=== PATIENT | female | born 1960 | race Caucasian/White ===

== ENCOUNTER 2020-06-28 17:03 | Emergency (ER) | payer OTHER, SELFPAY ==
[2020-06-28 17:14] VITALS: RESP 16; TEMP 37.1; O2SAT 99; BMI 18.1
--- NOTE | 2020-06-28 17:39 | HMH.EDSKAF ---
ED Disposition Clinical Impression: Abscess of skin or subcutaneous tissue Qualifiers: Site of cutaneous abscess: trunk Site of cutaneous abscess of trunk: chest wall Qualified Code(s): L02.213 - Cutaneous abscess of chest wall Disposition: Home, Self-Care Condition on Discharge: Good Instructions: DI for Skin Abscess Prescriptions: Sulfamethoxazole/Trimethoprim [Bactrim DS tablet] 1 each PO BID #14 tab Prescription Printed cephALEXin [Cephalexin 500mg Tab] 500 mg PO QID #28 tab Prescription Printed Referrals: Delfino Garcia MD [Primary Care Provider] - - Critical Care Critical Care Time: No Attestation: On 06/28/20, the high probability of a clinically significant, sudden or life threatening deterioration of the following system(s) required my full and direct attention, intervention and personal management. The time I documented below is in addition to time spent performing reported procedures but includes the following listed in this critical care notation. Medical Decision Making - Medical Records Medical records reviewed: Yes: I reviewed the patient's medical records. - Dung Inquiry Pt receiving controlled substance: No Vital Signs: 06/28/20 17:14 Temperature 98.7 F Temperature Source Oral Respiratory Rate 16 02 Sat by Pulse Oximetry 99 Oxygen Delivery Method Room Air - Reevaluation(s) Time: 17:46 Reevaluation #1: On reevaluation, patient tolerated procedure well. Will be discharged on short course antibiotics. Patient needs to return to the emergency department for wound reevaluation in 48 hours. Given strict return precautions. Verbalized understanding. Medical Decision Narrative: 59-year-old female presented to the emergency department with abscess in the right upper chest. Patient has significant fluctuance. I did perform bedside ultrasound. There is a large collection of loculated material. Patient will require incision and drainage. Skin/Abscess/FB HPI - General Chief complaint: Skin/Abscess/Foreign Body Stated complaint: spot on chest possible infected Time Seen by Provider: 06/28/20 17:20 Mode of Arrival: Ambulatory Limitations: No Limitations Description of Symptoms (Recalled from ER Triage Doc. by RN): Large abcess on chest, complains of pain the last two weeks at the site, Site red and swollen, with thick yellow drainage - History of Present Illness HPI narrative: 59-year-old female presented to the emergency department with a abscess on her right chest. The patient states that she had a small cyst there for many months. She states that has been irritating her for the last few weeks. She has been squeezing it and getting pus out of it. She states that it started hurting over the last few days and got very red so she got concerned. Is located on her right middle chest. Does not involve the nipple. She is not been having any bleeding from the nipple discharge. She denies any other chest pain or shortness of breath. No fevers or chills. No abdominal pain or vomiting. - Related Data Previous Rx's Medication Instructions Recorded Sulfamethoxazole/Trimethoprim 1 each PO BID #14 tab 06/28/20 [Bactrim DS tablet] cephALEXin [Cephalexin 500mg Tab] 500 mg PO QID #28 tab 06/28/20 [facility] History - Hepatitis A Screen Drug use history?: No High risk sexual behaviors?: No History of sexually transmitted infection?: No Currently employed?: No Childcare worker?: No Do you have indoor plumbing?: Yes Do you have electricity?: Yes Attestation statement:: This patient has been screened for Hepatitis A risk factors. I have reviewed the patient's past medical history: Yes ROS Obtained: Yes All systems reviewed & no additional complaints - Constitutional Constitutional: Denies chills, Denies fever(s) - Cardiovascular Cardiovascular: Denies chest pain - Respiratory Respiratory: Denies dyspnea - Gastrointestinal Gastrointestingal: Denies: vomiting - M
[2020-06-28 18:00] VITALS: BP 142/73; PULSE 73; RESP 15; TEMP 36.6
== END 2020-06-28 18:05 | disposition home or self-care (01) ==
PROVIDERS: Emergency Provider Emergency Medicine; PCP Family Medicine
DX: L02.213 Cutaneous abscess of chest wall (principal)
CPT/HCPCS: 10060; 99281

== ENCOUNTER 2023-03-17 18:34 | Emergency (ER) | payer MEDICAID, SELFPAY ==
[2023-03-17] VITALS (9 sets, daily range): BP systolic 105–131; BP diastolic 73–87; PULSE 71–82; RESP 16–20; TEMP 35.9–36.6; O2SAT 97–100; BMI 19.3
--- NOTE | 2023-03-17 18:45 | ECG_ITS ---
APPROVED REPORT Exam: Resting ECG HR:74 bpm ECG Measurements Heart Rate 74 AXES IN 184 P 86 QRSd 94 QRS 87 QT 396 T 75 QTc 423 Conclusion SINUS RHYTHM NORMAL ECG UNCONFIRMED REPORT Electronically signed by : Delfino Moreno MD 03/18/2023 19:45:37
--- NOTE | 2023-03-17 18:59 | HMH.EDGENADL ---
Discharge Plan Disposition Patient Disposition: Home, Self-Care Condition: Good Prescriptions Prescriptions: New meclizine 25 mg tablet 25 mg PO TID PRN (Reason: dizziness) Qty: 20 0RF Referrals Follow up/Referrals: Provider,Referral, [Primary Care Provider] - See instructions Activity Restrictions/Add. Instructions Additional Instructions/Restrictions: You were evaluated in the emergency department today. At this time, I feel that you likely have vertigo. Please follow-up with your primary care provider for reassessment. superintendent general your prescription for meclizine and take as needed for symptoms. Return to the emergency department for new or worsening symptoms. Clinical Impressions Clinical Impression: Vertigo Instructions Patient Instructions: DI for Vertigo, DI for Nausea -- Adult Discharge ED Provider: Meseret Brennan General Adult HPI General Chief complaint: Nausea/Vomiting/Diarrhea Stated complaint: dizzy, vomiting Time Seen by Provider: 03/17/23 18:37 History of Present Illness HPI narrative: This patient is a 62-year-old female who reports a history of inner ear issues presenting to the emergency department for evaluation with concern for acute onset dizziness and vomiting that started while she was shopping. She states that she thought that maybe she had eaten some bad chocolate that she had gotten at [employer]. She states that she was walking through a store when all this and she felt like the room was spinning. She sat down and then had to vomit. Now she is feeling much better aside from feeling very cold and shivering. She denies any sensation that the room is spinning at this time and denies any neurologic symptoms such as headache, numbness, tingling, unilateral weakness, balance issues, or other concerns. She does note history of tinnitus and vertigo in the past that has been intermittent. No other concerns at this time, such as chest pain, shortness of breath, abdominal pain, changes in bowel movements, or other concerns. Related Data Previous Rx's Medication Instructions Recorded meclizine 25 mg tablet 25 mg PO TID PRN dizziness #20 tabs 03/17/23 Allergies Allergy/AdvReac Type Severity Reaction Status Date / Time No Known Allergies Allergy Verified 06/28/20 17:48 [facility] Disclaimer: The information contained in this section may have been updated after the patient was seen, as this information can be updated by other users. Social History Smoking Status: Current every day smoker alcohol intake: never current occupational status: retired Travel in the last 8 weeks: None ROS Obtained: Yes All systems reviewed & no additional complaints except as documented Physical Exam General General appearance: alert and in no apparent distress Head Head exam: atraumatic and normocephalic Eye Eye exam: Present normal appearance, PERRL and EOMI ENT ENT exam: Present normal exam, normal oropharynx, mucous membranes moist and normal external ear exam Neck Neck exam: Present normal inspection, full ROM and trachea midline; Absent tenderness Chest Chest inspection: Present normal inspection and symmetric chest wall rise; Absent tenderness Respiratory Respiratory exam: Present normal lung sounds bilaterally; Absent respiratory distress, wheezes, stridor or accessory muscle use Cardiovascular Cardiovascular exam: Present regular rate and normal rhythm Abdominal Exam Abdominal exam: Present soft; Absent distention, tenderness or guarding Extremities Exam Extremities exam: Present normal inspection, full ROM and normal capillary refill; Absent tenderness or edema Back Exam Back exam: Present normal inspection and full ROM; Absent tenderness Neurological Exam Neurological exam: Present alert, oriented X3, CN II-XII intact and normal gait; Absent motor sensory deficit Psychiatric Psychiatric exam: Present normal affect and normal mo
[2023-03-17 19:17] LABS: Basophils # 0.1 K/mm3 (0-0.2); Basophils % 0.7 % (0.1-2.0); Eosinophils # 0.1 K/mm3 (0.0-0.4); Eosinophils % 1.5 % (0.1-12.0); Hematocrit 47.5 % (37.0-47.0); Hemoglobin 15.9 g/dL (12.2-16.2); Lymphocytes # 2.2 K/mm3 (0.7-4.5); Lymphocytes % 23.5 % (10-50); Mean Corpuscular HGB Conc 33.6 g/dL (31.8-35.4); Mean Corpuscular Hemoglobin 32.1 pg (27.0-31.2); Mean Corpuscular Volume 95.5 fl (81-99); Mean Platelet Volume 8.4 fl (7.4-10.4); Monocytes # 0.4 K/mm3 (0.1-1.0); Monocytes % 3.7 % (1.7-9.3); Neutrophils # 6.6 K/mm3 (1.8-7.8); Neutrophils % 70.5 % (37.0-80.0); Platelet Count 222 K/mm3 (142-424); Red Blood Count 4.97 M/mm3 (4.20-5.40); Red Cell Distribution Width 13.5 % (11.5-17.5); White Blood Count 9.3 K/mm3 (4.8-10.8)
[2023-03-17 19:21] LABS: Chloride 102 mmol/L (98-107); Potassium 3.4 mmoL/L (3.5-5.1); Sodium 138 mmol/L (136-145)
[2023-03-17 19:23] LABS: Alanine Aminotransferase 28 U/L (12-78); Aspartate Amino Transferase 37 U/L (14-36); Blood Urea Nitrogen 11 mg/dl (7-17); Estimated Glomerular Filt Rate 85 ml/min (>60); GFR (African American) 102 ML/MIN (>60)
[2023-03-17 19:24] LABS: Albumin/Globulin Ratio 1.5 (1.1-1.8); Alkaline Phosphatase 50 U/L (38-126); Anion Gap 16.4 mEq/L (5-15); Bilirubin,Total 0.9 mg/dl (0.2-1.3); Carbon Dioxide 23 mmol/L (22.0-30.0); Globulin 3.3 g/dL (1.3-3.2); Glucose 134 mg/dl (74-100); Lipase 50 U/L (23-300); Total Protein,Serum 8.3 g/dl (6.3-8.2)
[2023-03-17 19:37] LABS: Troponin I < 0.01 ng/ml (0.00-0.034)
--- NOTE | 2023-03-17 20:21 | PC.NURSE ---
Pt provided saltines and water for PO challenge, pt states she feels much better. Family at bedside awaiting to draw 2nd trop at 2100. Temp 97.8
[2023-03-17 20:58] LABS: Coronavirus 19, PCR Not Detected (NotDetected); Influenza A, PCR Not Detected (NotDetected); Influenza B, PCR Not Detected (NotDetected)
[2023-03-17 21:47] LABS: Troponin I < 0.01 ng/ml (0.00-0.034)
== END 2023-03-17 22:06 | disposition home or self-care (01) ==
PROVIDERS: Emergency Provider Emergency Medicine
DX: R42 Dizziness and giddiness (principal); E87.6 Hypokalemia; T68.XXXA Hypothermia, initial encounter; R11.2 Nausea with vomiting, unspecified; R68.83 Chills (without fever); F17.210 Nicotine dependence, cigarettes, uncomplicated
CPT/HCPCS: 80053; 83690; 84484; 85025; 87636; 93005; 96361; 96374; 99284; J2405